=== PATIENT | male | born 1940 | race Two or more races ===

== ENCOUNTER → 2016-05-20 | Outpatient (REF) | payer MEDICARE, OTHER ==
[2016-05-20 12:26] LABS: BASO % 0.9 % (0.0-1.0); EOS # 0.2 K/mm3 (0.0-0.50); EOS % 3.1 % (0.0-3.0); LARGE UNSTAINED CELL # 0.1 K/mm3 (0.0-0.4); LARGE UNSTAINED CELL % 1.9 % (0.0-4.0); LYMPH # 1.7 K/mm3 (1.5-4.5); LYMPH % 27.4 % (24.0-44.0); MEAN CORPUSCULAR HEMOGLOBIN 31.4 pg (27.0-33.0); MEAN CORPUSCULAR HGB CONC 33.2 g/dl (32.0-36.5); MEAN CORPUSCULAR VOLUME 94.5 fl (80.0-96.0); MONO # 0.5 K/mm3 (0.0-0.8); MONO % 8.2 % (0.0-5.0); NEUTROPHILS # 3.4 K/mm3 (1.8-7.7); NEUTROPHILS % 58.4 % (36.0-66.0); PLATELET COUNT, AUTOMATED 211 k/mm3 (150-450); RED CELL DISTRIBUTION WIDTH 13.4 % (11.5-14.5); WHITE BLOOD COUNT 5.8 K/mm3 (4.0-10.0)
[2016-05-20 12:38] LABS: ALBUMIN 3.6 GM/DL (3.2-5.2); ALBUMIN/GLOBULIN RATIO 1.24 (1.00-1.93); ALKALINE PHOSPHATASE 111 U/L (45-117); ALT/SGPT 16 U/L (12-78); ANION GAP 7 MEQ/L (8-16); AST/SGOT 10 U/L (15-37); BILIRUBIN,TOTAL 0.4 MG/DL (0.2-1.0); BLOOD UREA NITROGEN 13 MG/DL (7-18); CALCIUM LEVEL 8.5 MG/DL (8.8-10.2); CARBON DIOXIDE LEVEL 30 MEQ/L (21-32); CHLORIDE LEVEL 107 MEQ/L (98-107); CREATININE FOR GFR 1.17 MG/DL (0.70-1.30); GLOMERULAR FILTRATION RATE > 60.0 (>42); GLUCOSE, FASTING 118 MG/DL (83-110); POTASSIUM SERUM 4.6 MEQ/L (3.5-5.1); SODIUM LEVEL 144 MEQ/L (136-145); TOTAL PROTEIN 6.5 GM/DL (6.4-8.2)
== END ==
LOC: M SFHCADAM 08:57
PROVIDERS: ATTEND Family Medicine
DX: R10.9 Unspecified abdominal pain (principal)

== ENCOUNTER 2016-07-12 10:57 | Emergency (ER) | payer MEDICARE, OTHER ==
[~2016-07-12] VITALS: Ht 172.7 cm; Wt 76.2 kg
[2016-07-12] MEDS ORDERED: ATOR1TAB19 PO (11:23)
[2016-07-12] MEDS ORDERED: NITR0.4S14 SL (11:23)
[2016-07-12] MEDS ORDERED: ASPI325T28 PO (11:23)
[2016-07-12] MEDS ORDERED: LISI2.5T3 PO (11:23)
[2016-07-12] MEDS ORDERED: METF500T PO (11:23)
[2016-07-12] MEDS ORDERED: PLAV75TA38 PO (11:23)
[2016-07-12 12:38] LABS: BASO # 0.1 K/mm3 (0.0-0.2); BASO % 1.3 % (0.0-1.0); EOS # 0.3 K/mm3 (0.0-0.50); EOS % 4.4 % (0.0-3.0); LARGE UNSTAINED CELL # 0.1 K/mm3 (0.0-0.4); LARGE UNSTAINED CELL % 1.9 % (0.0-4.0); LYMPH # 1.6 K/mm3 (1.5-4.5); LYMPH % 26.1 % (24.0-44.0); MEAN CORPUSCULAR HEMOGLOBIN 31.4 pg (27.0-33.0); MEAN CORPUSCULAR HGB CONC 33.2 g/dl (32.0-36.5); MEAN CORPUSCULAR VOLUME 94.5 fl (80.0-96.0); MONO # 0.3 K/mm3 (0.0-0.8); MONO % 5.3 % (0.0-5.0); NEUTROPHILS # 3.6 K/mm3 (1.8-7.7); NEUTROPHILS % 61.1 % (36.0-66.0); PLATELET COUNT, AUTOMATED 237 k/mm3 (150-450); RED CELL DISTRIBUTION WIDTH 13.5 % (11.5-14.5); WHITE BLOOD COUNT 5.9 K/mm3 (4.0-10.0)
[2016-07-12 12:55] LABS: ANION GAP 6 MEQ/L (8-16); BLOOD UREA NITROGEN 21 MG/DL (7-18); CALCIUM LEVEL 8.7 MG/DL (8.8-10.2); CARBON DIOXIDE LEVEL 27 MEQ/L (21-32); CHLORIDE LEVEL 109 MEQ/L (98-107); CREATININE FOR GFR 1.26 MG/DL (0.70-1.30); GLOMERULAR FILTRATION RATE 59.7 (>42); GLUCOSE, FASTING 82 MG/DL (83-110); POTASSIUM SERUM 4.5 MEQ/L (3.5-5.1); SODIUM LEVEL 142 MEQ/L (136-145)
[2016-07-12 13:39] LABS: ERYTHROCYTE SEDIMENTATION RATE 14 mm/hr (0-20)
--- NOTE | 2016-07-12 13:52 | REP ---
Clinical: Bilateral calf pain and swelling . Technique: Crain scale and color Doppler evaluation using linear high frequency transducer. Findings: Ultrasound examination of the right and left lower extremity deep venous structures from the common femoral vein to the popliteal vein demonstrates normal compressibility flow and wave patterns in response to respiration and augmentation. There is no evidence for deep venous thrombosis. Incidental note is made of duplicated left mid femoral vein. Impression: No evidence for deep venous thrombosis. Signed by Philip Montague MD 07/12/2016 01:44 P
[2016-07-12 14:16] VITALS: BP 175/88
== END 2016-07-12 14:20 | disposition home or self-care (01) ==
LOC: M ED 11:54
DX: S86.811A Strain of other muscle(s) and tendon(s) at lower leg level, right leg, initial encounter (principal); S86.812A Strain of other muscle(s) and tendon(s) at lower leg level, left leg, initial encounter; X50.9XXA Other and unspecified overexertion or strenuous movements or postures, initial encounter; Y92.89 Other specified places as the place of occurrence of the external cause; Y93.H9 Activity, other involving exterior property and land maintenance, building and construction; Y99.8 Other external cause status; E11.9 Type 2 diabetes mellitus without complications; I10 Essential (primary) hypertension; I25.10 Atherosclerotic heart disease of native coronary artery without angina pectoris; I25.2 Old myocardial infarction; F17.210 Nicotine dependence, cigarettes, uncomplicated; Z95.5 Presence of coronary angioplasty implant and graft; Z79.899 Other long term (current) drug therapy; Z79.82 Long term (current) use of aspirin; Z79.84 Long term (current) use of oral hypoglycemic drugs; Z88.8 Allergy status to other drugs, medicaments and biological substances

== ENCOUNTER 2017-06-13 11:45 | Emergency (ER) | payer MEDICARE, OTHER ==
[2017-06-13 12:44] LABS: BASO # 0.1 10^3/uL (0.0-0.2); BASO % 0.9 % (0.0-1.0); EOS # 0.2 10^3/uL (0.0-0.50); EOS % 2.8 % (0.0-3.0); HEMATOCRIT 39.8 % (42.0-52.0); HEMOGLOBIN 13.2 g/dl (13.5-17.5); IMMATURE GRANULOCYTE % 0.3 % (0-3.0); LYMPH # 1.9 10^3/uL (1.5-4.5); LYMPH % 28.9 % (24.0-44.0); MEAN CORPUSCULAR HGB CONC 33.2 g/dl (32.0-36.5); MEAN CORPUSCULAR VOLUME 93.4 fl (80.0-96.0); MONO # 0.5 10^3/uL (0.0-0.8); MONO % 8.1 % (0.0-5.0); NEUTROPHILS # 3.9 10^3/uL (1.8-7.7); PLATELET COUNT, AUTOMATED 208 10^3/uL (150-450); RED BLOOD COUNT 4.26 10^6/uL (4.30-6.10); WHITE BLOOD COUNT 6.5 10^3/uL (4.0-10.0)
[2017-06-13 12:51] LABS: PARTIAL THROMBOPLASTIN TIME 43.7 SECONDS (26.8-37.9)
[2017-06-13 12:58] LABS: ALBUMIN 3.4 GM/DL (3.2-5.2); ALBUMIN/GLOBULIN RATIO 0.94 (1.00-1.93); ALKALINE PHOSPHATASE 106 U/L (45-117); ALT/SGPT 21 U/L (12-78); ANION GAP 5 MEQ/L (8-16); AST/SGOT 14 U/L (7-37); BILIRUBIN,DIRECT < 0.1 MG/DL (0.0-0.2); BILIRUBIN,TOTAL 0.3 MG/DL (0.2-1.0); BLOOD UREA NITROGEN 19 MG/DL (7-18); CALCIUM LEVEL 8.4 MG/DL (8.8-10.2); CARBON DIOXIDE LEVEL 27 MEQ/L (21-32); CHLORIDE LEVEL 112 MEQ/L (98-107); CPK CREATINE PHOSPHOKINASE 55 U/L (39-308); CREATININE FOR GFR 1.23 MG/DL (0.70-1.30); GLOMERULAR FILTRATION RATE > 60.0 (>42); GLUCOSE, FASTING 65 MG/DL (70-100); LIPASE 152 U/L (73-393); POTASSIUM SERUM 4.3 MEQ/L (3.5-5.1); SODIUM LEVEL 144 MEQ/L (136-145); TROPONIN I < 0.02 NG/ML (< 0.10)
[2017-06-13 13:05] LABS: CK-MB VALUE MASS < 1.0 NG/ML (<3.6); MB/CK RELATIVE INDEX 1.81 (< OR =4); NT-PRO BNP 104 PG/ML (<125)
[2017-06-13 13:37] LABS: INR 1.03; PROTHROMBIN TIME 13.6 SECONDS (12.4-14.5)
[2017-06-13 16:01] LABS: CPK CREATINE PHOSPHOKINASE 53 U/L (39-308); TROPONIN I < 0.02 NG/ML (< 0.10)
[2017-06-13 16:02] LABS: CK-MB VALUE MASS 1.1 NG/ML (<3.6); MB/CK RELATIVE INDEX 2.07 (< OR =4)
== END 2017-06-13 19:27 | disposition short-term general hospital (02) ==
LOC: M ED 11:45
DX: I20.0 Unstable angina (principal); R00.1 Bradycardia, unspecified; I25.10 Atherosclerotic heart disease of native coronary artery without angina pectoris; I25.2 Old myocardial infarction; I10 Essential (primary) hypertension; E78.5 Hyperlipidemia, unspecified; J44.9 Chronic obstructive pulmonary disease, unspecified; Z95.5 Presence of coronary angioplasty implant and graft; F17.200 Nicotine dependence, unspecified, uncomplicated; Z79.82 Long term (current) use of aspirin; Z79.899 Other long term (current) drug therapy; Z88.8 Allergy status to other drugs, medicaments and biological substances
CPT/HCPCS: 71045

== ENCOUNTER → 2019-01-22 | Outpatient (REF) | payer MEDICARE, OTHER ==
[~2019-01-22] MED LIST: ASPI-527 PO; ATOR1TAB19 PO; LISI-1046 PO; METF500T13 PO; NITR0.4S14 SL; PLAV1TAB2 PO
[2019-01-22 17:20] LABS: BASO # 0.1 10^3/uL (0.0-0.2); BASO % 1.5 % (0.0-1.0); EOS # 0.1 10^3/uL (0.0-0.5); EOS % 1.6 % (0.0-3.0); HEMATOCRIT 41.3 % (42.0-52.0); HEMOGLOBIN 13.6 g/dl (13.5-17.5); LYMPH # 1.7 10^3/uL (1.5-5.0); LYMPH % 23.9 % (24.0-44.0); MEAN CORPUSCULAR HEMOGLOBIN 31.5 pg (27.0-33.0); MEAN CORPUSCULAR HGB CONC 32.9 g/dl (32.0-36.5); MEAN CORPUSCULAR VOLUME 95.6 fl (80.0-96.0); MONO # 0.5 10^3/uL (0.0-0.8); MONO % 7.1 % (0.0-5.0); NEUTROPHILS # 4.8 10^3/uL (1.5-8.5); NEUTROPHILS % 65.6 % (36.0-66.0); PLATELET COUNT, AUTOMATED 214 10^3/uL (150-450); RED BLOOD COUNT 4.32 10^6/uL (4.30-6.10); WHITE BLOOD COUNT 7.3 10^3/uL (4.0-10.0)
[2019-01-22 17:48] LABS: ALBUMIN 3.7 GM/DL (3.2-5.2); BILIRUBIN,TOTAL 0.4 MG/DL (0.2-1.0); CALCIUM LEVEL 8.7 MG/DL (8.8-10.2); CHOLESTEROL RISK RATIO 2.755 (<5); CREATININE FOR GFR 1.47 MG/DL (0.70-1.30); GLOMERULAR FILTRATION RATE 49.6 (>42); POTASSIUM SERUM 4.7 MEQ/L (3.5-5.1); THYROID STIMULATING HORMONE 0.857 uIU/ML (0.358-3.740); TOTAL PROTEIN 6.6 GM/DL (6.4-8.2)
[2019-01-22 18:29] LABS: HEMOGLOBIN A1c 5.6 %
== END ==
LOC: M SFHCADAM 14:32
PROVIDERS: ATTEND Physician Assistant Medical
DX: I25.10 Atherosclerotic heart disease of native coronary artery without angina pectoris (principal); E11.9 Type 2 diabetes mellitus without complications; E78.2 Mixed hyperlipidemia; Z23 Encounter for immunization
CPT/HCPCS: 80053; 80061; 83036; 84443; 85025; 90682; G0008; G0463

== ENCOUNTER → 2019-04-12 | Outpatient (CLI) | payer MEDICARE, OTHER ==
--- NOTE | 2019-04-12 14:10 | REP ---
Clinical: Wheezing . Comparison: 06/13/2017 . Technique: PA and lateral. Findings: The mediastinum and cardiac silhouette are normal. The lung ballard are clear and without acute consolidation, effusion, or pneumothorax. The skeletal structures are intact and normal. Impression: 1. No acute cardiopulmonary process. Electronically Signed by Philip Montague MD 04/12/2019 02:02 P
== END ==
LOC: M ADAMS 13:34
PROVIDERS: ATTEND Family Medicine
DX: R06.2 Wheezing (principal)
CPT/HCPCS: 71046; G0463

== ENCOUNTER → 2019-09-12 | Outpatient (REF) | payer MEDICARE, OTHER ==
[~2019-09-12] MED LIST changes: -LISI-1046 PO; +LISI2.5T2 PO
== END ==
LOC: M SFHCADAM 08:08
PROVIDERS: ATTEND Physician Assistant Medical
DX: I25.10 Atherosclerotic heart disease of native coronary artery without angina pectoris (principal); E11.9 Type 2 diabetes mellitus without complications; F17.210 Nicotine dependence, cigarettes, uncomplicated; E78.2 Mixed hyperlipidemia; I25.5 Ischemic cardiomyopathy; Z53.8 Procedure and treatment not carried out for other reasons

== ENCOUNTER → 2020-05-11 | Outpatient (REF) | payer MEDICARE, OTHER ==
[2020-05-11 12:53] LABS: BASO # 0.1 10^3/uL (0.0-0.2); BASO % 1.8 % (0.0-1.0); EOS # 0.1 10^3/uL (0.0-0.5); EOS % 2.4 % (0.0-3.0); HEMATOCRIT 43.2 % (42.0-52.0); HEMOGLOBIN 13.9 g/dl (13.5-17.5); LYMPH # 1.7 10^3/uL (1.5-5.0); MEAN CORPUSCULAR HGB CONC 32.2 g/dl (32.0-36.5); MEAN CORPUSCULAR VOLUME 96.4 fl (80.0-96.0); MONO # 0.6 10^3/uL (0.0-0.8); MONO % 10.9 % (2.0-8.0); NEUTROPHILS # 2.6 10^3/uL (1.5-8.5); NEUTROPHILS % 51.5 % (36.0-66.0); PLATELET COUNT, AUTOMATED 230 10^3/uL (150-450); RED BLOOD COUNT 4.48 10^6/uL (4.30-6.10); WHITE BLOOD COUNT 5.1 10^3/uL (4.0-10.0)
[2020-05-11 13:38] LABS: ALBUMIN 3.6 GM/DL (3.2-5.2); BILIRUBIN,TOTAL 0.4 MG/DL (0.2-1.0); CALCIUM LEVEL 8.7 MG/DL (8.8-10.2); CHOLESTEROL RISK RATIO 2.916 (<5); CREATININE FOR GFR 1.25 MG/DL (0.70-1.30); GLOMERULAR FILTRATION RATE 59.6 (>42); POTASSIUM SERUM 4.9 MEQ/L (3.5-5.1); THYROID STIMULATING HORMONE 1.27 uIU/ML (0.358-3.740); TOTAL PROTEIN 6.6 GM/DL (6.4-8.2)
[2020-05-11 13:49] LABS: HEMOGLOBIN A1c 5.9 %
== END ==
LOC: M SFHCADAM 08:22
PROVIDERS: ATTEND Physician Assistant Medical
DX: I25.10 Atherosclerotic heart disease of native coronary artery without angina pectoris (principal); E11.9 Type 2 diabetes mellitus without complications; F17.210 Nicotine dependence, cigarettes, uncomplicated; E78.2 Mixed hyperlipidemia; I25.5 Ischemic cardiomyopathy

== ENCOUNTER → 2020-05-12 | Outpatient (REF) | payer MEDICARE, OTHER ==
[2020-05-12 14:47] LABS: MAU/CREAT RATIO 54.1 MCG/MG (0.0-30.0)
== END ==
LOC: M SFHCADAM 13:12
PROVIDERS: ATTEND Physician Assistant Medical
DX: Z00.00 Encounter for general adult medical examination without abnormal findings (principal); I25.10 Atherosclerotic heart disease of native coronary artery without angina pectoris; E11.9 Type 2 diabetes mellitus without complications; F17.210 Nicotine dependence, cigarettes, uncomplicated; E78.2 Mixed hyperlipidemia; I25.5 Ischemic cardiomyopathy

== ENCOUNTER → 2020-07-31 | Outpatient (CLI) | payer MEDICARE, OTHER ==
--- NOTE | 2020-07-31 18:24 | REP ---
INDICATION: MASS OF RIGHT UPPER EXTREMITY COMPARISON: None. TECHNIQUE: AP and lateral right forearm. FINDINGS: There is no evidence of acute fracture, dislocation, or intrinsic bone disease.There are moderate degenerative changes at the articulation between the scaphoid and trapezium. No gross soft tissue abnormality is seen. IMPRESSION: No fracture or dislocation. No gross soft tissue abnormality. <Electronically signed by Arjun Crain > 07/31/20 [id number]
== END ==
LOC: M ADAMS 13:28
PROVIDERS: ATTEND Physician Assistant Medical
DX: M84.9 Disorder of continuity of bone, unspecified (principal)

== ENCOUNTER → 2020-08-19 | Outpatient (REF) | payer MEDICARE, OTHER ==
[2020-08-19 13:47] LABS: HEMOGLOBIN A1c 5.7 %
[2020-08-19 14:05] LABS: ALBUMIN 3.6 GM/DL (3.2-5.2); BILIRUBIN,TOTAL 0.3 MG/DL (0.2-1.0); CALCIUM LEVEL 8.8 MG/DL (8.8-10.2); CREATININE FOR GFR 1.39 MG/DL (0.70-1.30); GLOMERULAR FILTRATION RATE 52.7 (>42); POTASSIUM SERUM 4.5 MEQ/L (3.5-5.1); TOTAL 25(OH) VITAMIN D 19.2 NG/ML (30.0-100.0); TOTAL PROTEIN 6.6 GM/DL (6.4-8.2)
== END ==
LOC: M SFHCADAM 08:10
PROVIDERS: ATTEND Physician Assistant
DX: R55 Syncope and collapse (principal); E16.2 Hypoglycemia, unspecified; I25.10 Atherosclerotic heart disease of native coronary artery without angina pectoris; E78.2 Mixed hyperlipidemia; Z79.899 Other long term (current) drug therapy

== ENCOUNTER → 2020-08-28 | Outpatient (CLI) | payer MEDICARE, OTHER ==
[~2020-08-28] MED LIST changes: +AMLO1TAB24 PO; +ELIQ5TAB PO; +METH-1165 PO; +OMEGA-3 1000MG CAPSULE ONE; +PROHANCE 279.3MG/ML 5ML VIAL ONE; +TRAM50TA2 PO
--- NOTE | 2020-08-28 15:55 | REP ---
INDICATION: RT FOREARM MASS. COMPARISON: Radiographs 07/31/2020. TECHNIQUE: Multiple sequences obtained in the axial, coronal and sagittal planes prior to and following the intravenous administration of 8 cc ProHance. FINDINGS: The site of the palpable lump is marked and images are centered at that location. At the site of the palpable lump there is an oval nonenhancing lipoma which measures approximately 14 x 16 x 5 mm. There is no internal or adjacent enhancement. No other cystic or solid soft tissue nodule is seen. The visualized adjacent radius and ulna demonstrate normal bone marrow signal. There is no bone marrow edema or enhancement. IMPRESSION: At the site of palpable lump there is a benign nonenhancing lipoma measuring 14 x 16 x 5 mm. <Electronically signed by Arjun Crain > 08/28/20 [id number]
== END ==
LOC: M PLAIMG 12:28
PROVIDERS: ATTEND Physician Assistant Medical
DX: D17.21 Benign lipomatous neoplasm of skin and subcutaneous tissue of right arm (principal); R22.31 Localized swelling, mass and lump, right upper limb
CPT/HCPCS: 73220; A9576

== ENCOUNTER 2020-08-30 18:36 | Inpatient (IN) | payer MEDICARE, OTHER ==
[~2020-08-30] VITALS: Ht 172.7 cm; Wt 76.3 kg
[~2020-08-30 18:36] MED LIST changes: -AMLO1TAB24 PO; -ELIQ5TAB PO; -METH-1165 PO; -OMEGA-3 1000MG CAPSULE ONE; -PROHANCE 279.3MG/ML 5ML VIAL ONE; -TRAM50TA2 PO
--- NOTE | 2020-08-30 19:10 | ECGEPIP ---
[facility] Test Date: 2020-08-30 Pat Name: HUMAIRA POTTER Department: Room: - Gender: Male [employer]: JESSICA : 1940 Requested By: DAIJA Hargrove PA-C Order Number: [id number] Reading MD: Viktor Bentley Measurements Intervals Given Rate: 76 P: 50 CO: 164 QRS: 60 QRSD: 94 T: 59 QT: 382 QTc: 429 Interpretive Statements Sinus rhythm with occasional premature ventricular complexes aVL uninterpretable Rate increased from tracing done 06-13-17 Electronically Signed on 08-30-2020 19:09:51 EDT by Viktor Bentley
--- NOTE | 2020-08-30 19:39 | REP ---
INDICATION: rib pain COMPARISON: None. TECHNIQUE: Frontal view of the chest with multiple views of the right hemithorax. Five total views. FINDINGS: Frontal view of the chest demonstrates bibasilar opacities (right greater than left) consistent with atelectasis and pneumonia along with suspected right pleural effusion. Multiple views of the right hemithorax demonstrates no acute rib fracture/injury or pathology. IMPRESSION: 1. Bibasilar opacities suggesting atelectasis/pneumonia and small pleural effusion. 2. Normal appearance of the right ribs. <Electronically signed by Philip Montague > 08/30/201934
[2020-08-30] MEDS ORDERED: methocarbamoL 750 MG TAB PO ONE ×2 (20:20→22:20)
[2020-08-30] MEDS ORDERED: LIDOCAINE 5% (LIDODERM) PATCH TD ONE (20:20)
[2020-08-30] MEDS ORDERED: traMADol 50 MG TAB PO ONE ×2 (20:20→22:20)
[2020-08-30 20:42] LABS: BASO # 0.1 10^3/uL (0.0-0.2); BASO % 0.8 % (0.0-1.0); EOS # 0.1 10^3/uL (0.0-0.5); EOS % 0.7 % (0.0-3.0); HEMATOCRIT 41.8 % (42.0-52.0); HEMOGLOBIN 13.8 g/dl (13.5-17.5); LYMPH # 1.5 10^3/uL (1.5-5.0); LYMPH % 16.7 % (24.0-44.0); MEAN CORPUSCULAR HEMOGLOBIN 31.4 pg (27.0-33.0); MEAN CORPUSCULAR VOLUME 95.2 fl (80.0-96.0); MONO % 11.1 % (2.0-8.0); NEUTROPHILS # 6.4 10^3/uL (1.5-8.5); NEUTROPHILS % 70.5 % (36.0-66.0); PLATELET COUNT, AUTOMATED 182 10^3/uL (150-450); RED BLOOD COUNT 4.39 10^6/uL (4.30-6.10)
[2020-08-30] MEDS ORDERED: ASPIRIN ENTERIC 325 MG TAB PO SCH (21:00)
[2020-08-30] MEDS: **NOTE PATIENT COMMENT** MISC XX SCH (21:00)
[2020-08-30 21:07] LABS: CK-MB VALUE MASS < 1.0 NG/ML (<3.6); CPK CREATINE PHOSPHOKINASE 55 U/L (39-308); MB/CK RELATIVE INDEX 1.82 (< OR =4); TROPONIN I < 0.02 NG/ML (< 0.10)
[2020-08-30] MEDS ORDERED: TRAM50TA2 PO (22:23)
[2020-08-30] MEDS ORDERED: METH-1165 PO (22:23)
[2020-08-30] MEDS ORDERED: diazePAM 10MG/2ML SYRINGE (J3360 PER 5MG) IV ONE (22:40)
[2020-08-30] MEDS ORDERED: NS 1,000 ML IV ONE (22:55)
[2020-08-30] MEDS ORDERED: ISOVUE-370 76% 100ML VIAL As Ordered ONE (23:02)
[2020-08-31] VITALS (11 sets, daily range): BP systolic 136–168; BP diastolic 68–93; O2SAT 83–94
--- NOTE | 2020-08-31 00:05 | REPVR ---
PROCEDURE INFORMATION: Exam: CTA Chest With Contrast Exam date and time: 08/30/2020 11:21 PM Age: 79 years old Clinical indication: Pain; Right-sided; Additional info: R sided chest pain severe, not improving with meds, HX mi TECHNIQUE: Imaging protocol: Computed tomographic angiography of the chest with contrast. 3D rendering (Not supervised by radiologist): MIP and/or 3D reconstructed images were created by the technologist. Radiation optimization: All CT scans at this facility use at least one of these dose optimization techniques: automated exposure control; mA and/or kV adjustment per patient size (includes targeted exams where dose is matched to clinical indication); or iterative reconstruction. Contrast material: ISOVUE 370; Contrast volume: 75 ml; Contrast route: INTRAVENOUS (IV); COMPARISON: CR Ribs uni W-PA CHEST ONLY RIGHT 08/30/2020 6:49 PM FINDINGS: Pulmonary arteries: The main pulmonary artery measures 27 mm. Minimal pulmonary embolism extending into the lateral segment of the right middle lobe. Aorta: The ascending thoracic aorta measures 34 mm. Lungs: Mild right middle lobe and lower lobe infiltrates and atelectasis and minimal left lower lobe and anterior right upper lobe fibro-atelectatic change. Pleural spaces: Trace right pleural effusion. Heart: Coronary artery calcifications are present. RV diameter is 5.7 cm cm, LV diameter is 3.8 cm cm. RV/LV ratio is 1.5. Lymph nodes: Unremarkable. No enlarged lymph nodes. Bones/joints: Unremarkable. No acute fracture. Soft tissues: Unremarkable. IMPRESSION: 1. Mild right middle lobe and right lower lobe infiltrates and atelectasis with trace right pleural effusion and minimal fibro-atelectatic change in the left lower lobe and anterior segment of the right upper lobe. 2. Minimal pulmonary embolism extending into the lateral segment of the right middle lobe. 3. Elevated RV/LV ratio measuring 1.5. Electronically signed by: Asa Calderon On 08/31/2020 00:04:59 AM
[2020-08-31] MEDS ORDERED: diazePAM 10MG/2ML SYRINGE (J3360 PER 5MG) IV ONE (00:25)
[2020-08-31] MEDS ORDERED: AMLO1TAB24 PO (00:58)
[2020-08-31] MEDS ORDERED: MAALOX 30 ML SUSP *UDC PO PRN (01:15)
[2020-08-31] MEDS ORDERED: MOM 30ML SUSPENSION UDC PO PRN (01:15)
--- NOTE | 2020-08-31 01:20 | HPEPDOC ---
[facility] Medical History & Physical Date of Admission Aug 31, 2020 Date of Service: Aug 31, 2020 Primary Care Physician: PASCUAL MOTA PA-C Attending Physician: RENAE TAMAYO MD History and Physical TIME OF SERVICE: 1:55 AM CHIEF COMPLAINT: Chest pain HISTORY OF PRESENT ILLNESS: Mr. Peguero, a 79-year-old male, presented with complaints of sudden onset right lower chest/mid abdomen sharp and shooting relapsing and remitting pain that began this morning. The pain did not radiate anywhere and was different from the pain associated with his AR. He thought that the pain might be due to excessive exertion. [place]age and mowed his lawn yesterday and washed his car later on in the day. He also had transient right upper shoulder pain. He denied having fevers, chills, change in his chronic cough, shortness of breath, trauma to his lower extremities recently, or falling. He drove to the [employer] in [facility] about 1 week ago. REVIEW OF SYSTEMS: 10 point review of systems negative except as listed in HPI PAST MEDICAL/ SURGICAL HISTORY: Chronic CAD/2 MIs with placement of 4 stents ( GARY and BMS), Ischemic cardiomyopathy EF 45%, carotid artery disease status post left carotid endarterectomy, NIDDM, essential HTN, COPD SOCIAL HISTORY: He is a ; his a few weeks ago. He is a who served in the [employer]. He began smoking when he was 42 years old and smokes less than a pack a day, he does not drink alcohol. He is fairly active and enjoys spending time in the outdoors [place] [address] [place]. FAMILY HISTORY: His father who is had heart disease/his mother who is had dementia/his siblings had CAD/one of his brothers from an embolic event ALLERGIES: Please see below. HOME MEDICATIONS: Please see below. PHYSICAL EXAM: Vital Signs Date Time Temp Pulse Resp B/P (MAP) Pulse Ox O2 Delivery O2 Flow Rate FiO2 08/30/20 18:45 99.2 81 18 171/95 (120) 97 GEN: well-nourished / well developed/ NAD INTEGUMENT: His nose is cyanotic but he does not have facial plethora HEENT: normocephalic / atraumatic / lips are not cyanotic / mucus membranes moist and pink /he has mild conjunctival injection CVS: RRR/ radial pulses intact / no lower extremity edema LUNGS: He is not coughing or using accessory muscles/there is normal respiratory expansion/he is not wheezing ABDOMEN: Contour flat MSK/EXTREMITIES: He has finger nail clubbing NEURO: CN 2-12 are grossly intact / speech is not dysarthric PSYCH: alert and oriented to person place and time/ able to understand and follow all commands LABORATORY DATA: See below. Immature Granulocyte % (Auto) 0.2, Neutrophils (%) (Auto) 70.5H, Lymphocytes (%) (Auto) 16.7L, Monocytes (%) (Auto) 11.1H, Eosinophils (%) (Auto) 0.7, Basophils (%) (Auto) 0.8, Neutrophils # (Auto) 6.4, Lymphocytes # (Auto) 1.5, Monocytes # (Auto) 1.0H, Eosinophils # (Auto) 0.1, Basophils # (Auto) 0.1, Nucleated Red Blood Cells % (auto) 0.0, Total Creatine Kinase 55, Creatine Kinase MB < 1.0, Creatine Kinase MB Relative Index 1.82, Troponin I < 0.02 08/30/20 20:36: POC Glucose (Misc Panel) 125H, POC Sodium (Misc Panel) 141, POC Potassium (Misc Panel) 4.0, POC Chloride (Misc Panel) 102, POC Total CO2 (Misc Panel) 25.0, POC Blood Urea Nitrogen (Misc Panel 18, POC Ionized Calcium (Misc Panel) 4.8, POC Creatinine (Misc Panel) 1.6H, POC Hematocrit (Misc Panel) 43.0 IMAGING: Chest x-ray IMPRESSION: 1. Bibasilar opacities suggesting atelectasis/pneumonia and small pleural effusion. 2. Normal appearance of the right ribs. CTA chest IMPRESSION: 1. Mild right middle lobe and right lower lobe infiltrates and atelectasis with trace right pleural effusion and minimal fibro- atelectatic change in the left lower lobe and anterior segment of the right upper lobe. 2. Minimal pulmonary embolism extending into the lateral segment of the right middle lobe. 3. Elevated RV/LV ratio measuring 1.5. MICROBIOLOGY: Respiratory panel is neg ASSESSMENT: Mr. Peguero is a 79 yr old M w CAD, Ischemic cardiomyopathy EF 45%, NIDDM, HTN, & COPD admitted for managment of submassive vs acute PE. PLAN: 1. Submassive PE vs Acute PE -He doesnt have hypotension or tachycardia and his Trop and BNP are wnl. -If the right heart strain is new and due to the PE this is a Submassive PE; the implications of this diagnosis is that this is one of the contraindications to starting a DOAC for manager intermediate AC. The day time team may consider discussing if the patient is a candidate for catheter directed therapy or EKOS. The SEATTLE II trial demonstrated that both the RV function and pulmonary artery (PA) pressures were safely and effectively improved at 48 hours postEKOS-assisted thrombolysis. -If the right heart strain is chronic and due to Pulm HTN and/or COPD then his PE is likely acute and he can be switched to a DOAC. -His ARABELLA Score to determine risk of complications in hemodynamically STABLE patients with Acute PE is 2 points = low risk for complications and morality -His PESI score is 97 which is class III or intermediate risk therefore he meets criteria for in-patient admission. Plan: we will admit him to the medical floor, rather than the PCU, because his ARABELLA score is low / we will start him on treatment dose lovenox pending the results of the Echo and obtaining records of his old Echo (from office) for comparison / I will ask the day time team to consult and or to confirm whether he is a candidate for EKOS 2 Right middle lobe and right lower lobe infiltrates -Beyond the chest pain he doent have signs or symptoms consistent with pneumonia. -I wonder if these opacities are Duke humps (pulmonary infarction). Plan: incentive spirometer / will ask the day time team to touch base with 3 Pleuritic right mid-lower chest pain -Possibly due to pulmonary infarction or muscle strain from exertion Plan: telemetry / acetaminophen / Flector patch and Tramadol 4 Transient Hypoxemia -Per d/w the patients RN in the ER the patients O2 sats dropped to the high 80s. -This may be due to the PE or alternatively may be chronic due to COPD Plan: continuous pulse ox /supplemental O2 / f/u ABG 5 Uncontrolled HTN -Possibly due to pain Plan: pain meds / give an extra 5 mg of Amlodipine tonight, otherwise we will c/w Amlodipe 5mg daily and Lisinoprl 2.5mg daily and tirate as needed 6 COPD -He denies feeling short of breath Plan: Albuterol PRN 6 Chronic CAD Plan: Aspirin, Clopidogrel, Atorvastatin 7 Chronic Ischemic cardiomyopathy EF 45% Plan: manage HTN 7 NIDDM Plan: diabetic diet / f/u accuchecks / hypoglycemia protocol / sliding scale insulin / hold oral anti-glycemic 8 CKD 3 Plan: f/u BMP DVT PROPHYLAXIS: n/a he is on treatment dose lovenox DISPOSITION: home after at least 2 midnight's stay Home Medications Scheduled Amlodipine Besylate (Amlodipine Besylate) 5 Mg Tablet, 5 MG PO DAILY Aspirin (Aspirin EC) 325 Mg Tab, 325 MG PO QHS Atorvastatin Calcium (Atorvastatin Calcium) 10 Mg Tab, 10 MG PO DAILY Clopidogrel Bisulfate (Plavix) 75 Mg Tab, 75 MG PO DAILY Lisinopril (Lisinopril) 2.5 Mg Tab, 2.5 MG PO DAILY Metformin HCl (Metformin HCl) 500 Mg Tab, 500 MG PO DAILY Scheduled PRN Nitroglycerin (Nitroglycerin) 0.4 Mg Sub, 0.4 MG SL for chest pain Allergies Coded Allergies: varenicline (Verified Allergy, Intermediate, RASH, 08/30/20) A-FIB/CHADSVASC A-FIB History Current/History of A-Fib/PAF?: No Current PO Anticoag Therapy: RENAE Singh MD Aug 31, 2020 01:20
[2020-08-31] MEDS ORDERED: GLUCAGON INJ 1MG VIAL SC PRN (01:35)
[2020-08-31] MEDS ORDERED: GLUCOSE 4GM CHEW TABLET PO PRN (01:35)
[2020-08-31] MEDS ORDERED: DEXTROSE 50% 50 ML SYRINGE IV PRN (01:35)
[2020-08-31] MEDS ORDERED: NITROGLYCERIN 0.4 MG SUBL TABLET SL PRN (01:35)
[2020-08-31] MEDS ORDERED: amLODIPine 5 MG TAB PO ONE (02:25)
[2020-08-31 02:49] LABS: RSV AMPLIFICATION NEGATIVE (NEGATIVE)
[2020-08-31] MEDS: ENOXAPARIN 80MG/0.8ML SYRINGE (J1650 PER 10MG) SC SCH ×2 (04:00→18:03)
[2020-08-31 07:05] LABS: HEMOGLOBIN A1c 5.6 %
[2020-08-31 08:31] LABS: BASO # 0.1 10^3/uL (0.0-0.2); BASO % 0.6 % (0.0-1.0); EOS % 0.3 % (0.0-3.0); HEMATOCRIT 40.6 % (42.0-52.0); HEMOGLOBIN 13.3 g/dl (13.5-17.5); LYMPH # 1.2 10^3/uL (1.5-5.0); LYMPH % 12.2 % (24.0-44.0); MEAN CORPUSCULAR HEMOGLOBIN 31.3 pg (27.0-33.0); MEAN CORPUSCULAR HGB CONC 32.8 g/dl (32.0-36.5); MEAN CORPUSCULAR VOLUME 95.5 fl (80.0-96.0); MONO % 10.4 % (2.0-8.0); NEUTROPHILS # 7.4 10^3/uL (1.5-8.5); NEUTROPHILS % 75.9 % (36.0-66.0); PLATELET COUNT, AUTOMATED 175 10^3/uL (150-450); RED BLOOD COUNT 4.25 10^6/uL (4.30-6.10); WHITE BLOOD COUNT 9.7 10^3/uL (4.0-10.0)
[2020-08-31 08:43] LABS: INR 1.12; PROTHROMBIN TIME 14.7 SECONDS (12.5-14.3)
[2020-08-31 08:45] LABS: PARTIAL THROMBOPLASTIN TIME 77.5 SECONDS (24.2-38.5)
[2020-08-31] MEDS: HumaLOG INSULIN (NovoLOG) PER UNIT SC SCH ×4 (08:46→21:00)
[2020-08-31] MEDS: LISINOPRIL *2.5 MG* TAB PO SCH (08:46)
[2020-08-31] MEDS: ATORVASTATIN 10 MG TAB PO SCH (08:47)
[2020-08-31] MEDS: DICLOFENAC EPOLAMINE 1.3 % PATCH TOP SCH (08:48)
[2020-08-31] MEDS: CLOPIDOGREL 75 MG TAB PO SCH (08:49)
[2020-08-31] MEDS ORDERED: amLODIPine 5 MG TAB PO SCH (09:00)
[2020-08-31 09:02] LABS: ALBUMIN 3.2 GM/DL (3.2-5.2); BILIRUBIN,TOTAL 0.8 MG/DL (0.2-1.0); CALCIUM LEVEL 8.1 MG/DL (8.8-10.2); CREATININE FOR GFR 1.27 MG/DL (0.70-1.30); GLOMERULAR FILTRATION RATE 58.5 (>42); POTASSIUM SERUM 4.2 MEQ/L (3.5-5.1); TOTAL PROTEIN 6.8 GM/DL (6.4-8.2)
--- NOTE | 2020-08-31 15:11 | IPNPDOC ---
Date Seen The patient was seen on 08/31/20. Progress Note SUBJECTIVE: Mr. Peguero is a pleasant 79 year old male sitting in the hospital bed. He presented to the Emergency department early this morning for new onset right sided chest pain/upper abdominal pain that started on the morning of 08/30/20. He states that he is feeling better than he was when he first presented to the ED. He is no longer experiencing the sharp right sided pain that he presented with. He was able to eat breakfast this morning without any nausea, vomiting, or diarrhea. He would like to go home but it is explained to him that we must obtain an echocardiogram to compare to his last one with Dr. May in order to decide the best treatment option for him. He had no overnight events and currently has an oxygen saturation of 96% on 3L NC. His (Dania Samuel) a few weeks ago on Father's Day. He lives alone in [place] but does have one son who lives nearby. He stated that he is taking life one day at a time and is handling her the best that he can at this time. OBJECTIVE PHYSICAL EXAMINATION: VITAL SIGNS: Please see below. GENERAL: well nourished elderly male sitting comfortably in bed in no acute distress HEENT: PERRLA, EOMI, mucous membranes are moist and pink, he had teeth extraction and thus has no teeth, trachea is midline, no lymphadenopathy appreciated CARDIOVASCULAR: regular rate and rhythm, no murmurs noted, heart sounds distant RESPIRATORY: Inspiratory effort decreased bilaterally, course crackles appreciated bilaterally, no rhonchi noted ABDOMINAL: positive bowel sounds in all 4 quadrants, soft, nontender to palpation. No organomegaly appreciated EXTREMITIES: Nail clubbing present on bilateral upper extremities, hair loss noted distal to knees bilaterally, no edema, capillary refill <2 seconds. PSYCHOLOGICAL: alert and oriented x 3 LABORATORY DATA, IMAGING STUDIES, MICROBIOLOGY: Please see below. Rib x-ray 08/30/20: Impression: Bibasilar opacities suggesting atelectasis/pneumonia and small pleural effusion. Normal appearance of the right ribs. CT angio chest 08/30/20: Impression: Mild right middle lobe and right lower lobe infiltrates and atelectasis with trace right pleural effusion and minimal fibro- atelectatic change in the left lower lobe and anterior segment of the right upper lobe. Minimal pulmonary embolism extending into the lateral segment of the right middle lobe. Elevated RV/LV ratio measuring 1.5. Echocardiogram: pending results DVT prophylaxis ordered?: yes, continue lovenox 80mg q12h ASSESSMENT AND PLAN: Mr. Peguero is a 79 year old male with past medical history of Coronary artery disease s/p two myocardial infarctions x 4 stents (both drug eluding and bare metal), Left carotid endarterectomy, ischemic cardiomyopathy EF 45%, Non Insulin Dependent diabetes mellitus, hypertension, and COPD who presented to the ED with new onset sharp right sided lower chest/upper abdominal pain who was found to have a right sided pulmonary embolism. PROBLEM: #Submassive vs Acute Pulmonary Embolism -Patient is not hypotensive, BP: 129/75 -Troponin within normal limits, ordered repeat -CTA results demonstrated right ventricular dilation (RV diameter 5.7cm vs LV diameter 3.8) RV/LV ratio is 1.5 (abnormal is considered above 1.0) -ordered a Dopplar echocardiogram, will review this and compare to past echocardiogram at Dr. May's offfice. If right ventricular dilation is new will consider EKOS catheter assisted thrombolysis. -Patient states he traveled to [facility] 1 week ago (2 hour car ride) -Patient has no history of blood clots, GI bleeds, or brain bleeds -Occult workup: CEA, PSA, Occult blood stool sample pending -Patient last colonoscopy 2010-Dr. Phan, told to return in 10 years-per patient -Patient has not had PSA measured in 5+ years and denies hematochezia. #CAD s/p two MIs -s/p 4 stents, both drug eluding and bare metal. -First two (2010, 2011) Last two stents placed 01/2020 -Patient follows with Dr. May for Cardiology -Nuclear stress test 05/2015 shows LVEF 45% -discontinued ASA 325, started ASA 81mg -Continue ASA 81 and plavix 75 for dual antiplatelet treatment 1 year following stent placement. -s/p left endarterectomy -continue atorvastatin #NIDDM -Last A1C 08/19/20: 5.7 -Patient takes Metformin 500mg q day as an outpatient -Continue SSI as inpatient -continue consistent carbohydrate diet #Hypertension: -BP stable: 129/75 -continue Lisinopril and amlodipine #COPD: -15 pack year smoking history, started at age 42 because of his -Patient's a few weeks ago, he is not interested in smoking cessation at this time. -Patient is not on any medications as an outpatient #CKD stage 3 -GFR 58.5 patient is around baseline -Likely secondary to hypertension -Continue lisinopril and amlodipine -BUN: 15 Creatinine: 03/18 DVT prophylaxis: yes, continue lovenox 80 q 12h DISPOSITION: We are awaiting the results of the echocardiogram. We will speak to Dr. May tomorrow to discuss if patient should be discharged on aspirin. He is currently on ASA 81 and plavix 75 secondary to stent placement 01/2020. Patient will likely be discharged on a DOAC. GME ATTESTATION My faculty preceptor for this patient encounter was physically present during encounter and was fully available. All aspects of the patient interview, examination, medical decision making process, and medical care plan development were reviewed and approved by the faculty preceptor. The faculty preceptor is aware and concurs with the plan as stated in the body of this note and will attest to such by his/her cosignature. VS, I&O, 24H, Fishbone Vital Signs/I&O Vital Signs Date Time Temp Pulse Resp B/P (MAP) Pulse Ox O2 Delivery O2 Flow Rate FiO2 08/31/20 12:02 98.6 67 18 149/93 (111) Nasal Cannula 3.0 08/31/20 07:58 93 Laboratory Data 24H LABS Laboratory Tests 2 08/30/20 20:23: Immature Granulocyte % (Auto) 0.2, Neutrophils (%) (Auto) 70.5H, Lymphocytes (%) (Auto) 16.7L, Monocytes (%) (Auto) 11.1H, Eosinophils (%) (Auto) 0.7, Basophils (%) (Auto) 0.8, Neutrophils # (Auto) 6.4, Lymphocytes # (Auto) 1.5, Monocytes # (Auto) 1.0H, Eosinophils # (Auto) 0.1, Basophils # (Auto) 0.1, Nucleated Red Blood Cells % (auto) 0.0, Estimated Mean Plasma Glucose 114H, Hemoglobin A1c 5.6, Total Creatine Kinase 55, Creatine Kinase MB < 1.0, Creatine Kinase MB Relative Index 1.82, Troponin I < 0.02 08/30/20 20:36: POC Glucose (Misc Panel) 125H, POC Sodium (Misc Panel) 141, POC Potassium (Misc Panel) 4.0, POC Chloride (Misc Panel) 102, POC Total CO2 (Misc Panel) 25.0, POC Blood Urea Nitrogen (Misc Panel 18, POC Ionized Calcium (Misc Panel) 4.8, POC Creatinine (Misc Panel) 1.6H, POC Hematocrit (Misc Panel) 43.0 08/31/20 01:59: Coronavirus (COVID-19)(PCR) NEGATIVE, Influenza Type A (RT-PCR) NEGATIVE, Infl uenza Type B (RT-PCR) NEGATIVE, Respiratory Syncytial Virus (PCR) NEGATIVE 08/31/20 07:38: Bedside Glucose (Misc Panel) 127H 08/31/20 08:06: Immature Granulocyte % (Auto) 0.6, Neutrophils (%) (Auto) 75.9H, Lymphocytes (%) (Auto) 12.2L, Monocytes (%) (Auto) 10.4H, Eosinophils (%) (Auto) 0.3, Basophils (%) (Auto) 0.6, Neutrophils # (Auto) 7.4, Lymphocytes # (Auto) 1.2L, Monocytes # (Auto) 1.0H, Eosinophils # (Auto) 0.0, Basophils # (Auto) 0.1, Nucleated Red Blood Cells % (auto) 0.0, Anion Gap 6L, Glomerular Filtration Rate 58.5, Calcium Level 8.1L, Total Bilirubin 0.8, Aspartate Amino Transf (AST/SGOT) 7, Alanine Aminotransferase (ALT/SGPT) 16, Alkaline Phosphatase 99, Total Protein 6.8, Albumin 3.2, Albumin/Globulin Ratio 0.9 08/31/20 08:10: Prothrombin Time 14.7H, Prothromb Time International Ratio 1.12, Activated Partial Thromboplast Time 77.5H 08/31/20 11:59: Bedside Glucose (Misc Panel) 92 CBC/BMP Laboratory Tests 08/30/20 20:23 08/31/20 08:06 ARIANNA BARAJAS DO Aug 31, 2020 15:11
[2020-08-31] MEDS: ACETAMINOPHEN TAB 650MG DOSE (2X325MG) PO PRN ×2 (16:31→23:31)
[2020-08-31] MEDS ORDERED: traMADol ER 100MG TABLET (ULTRAM ER) PO PRN (21:00)
--- NOTE | 2020-08-31 21:07 | ECHO ---
ECHOCARDIOGRAM DATE OF PROCEDURE: 08/31/2020 Age: 79 Gender: Female Height: 173 cm Weight: 79 kg REFERRING PHYSICIAN: Dr. Guillermina Richards INDICATION: Pulmonary embolism, looking at right ventricular function. MEASUREMENTS: IVS 1.1 cm LV 4.7 cm LVPW 1.1 cm LA 3.5 cm Aorta 3.8 cm Mitral E wave velocity 69 A wave 88 E prime septal 8.8 E prime lateral 10.4 FINDINGS: This study is of acceptable technical quality even though especially parasternal views were fair at best. Underlying sinus rhythm with ventricular ectopy. Left ventricle is normal size and systolic function with estimated EF around 60 to 65%. No segmental wall motion abnormalities are appreciated. Right ventricle is also normal size and systolic function. Both atria appear grossly normal. Aortic valve is minimally sclerotic, but mobility of leaflets seem preserved. Mitral and tricuspid valves appear normal. Pulmonic valve was not well seen. No pericardial effusion is noted. Inferior vena cava was not well visualized. Aortic root and aortic arch appear normal. Abdominal aorta was not seen. Doppler interrogation of the aortic valve reveals no stenosis or insufficiency. Same applies for mitral valve. Trace tricuspid insufficiency was seen. Unfortunately quality of TR jet was not sufficient to estimate pulmonary artery pressure. Mitral inflow pattern and tissue Doppler imaging of mitral annulus revealed grade 1 diastolic dysfunction. CONCLUSIONS: 1. Study is of acceptable technical quality, underlying sinus rhythm. 2. Normal LV size with preserved LV systolic function and grade 1 diastolic dysfunction. 3. No hemodynamically significant valvular disease. 4. Unable to estimate central venous pressure and pulmonary artery pressure, but no signs to suggest pulmonary hypertension. MTDD
[2020-08-31] MEDS: BACLOFEN 10 MG TAB PO SCH (21:46)
[2020-08-31] MEDS ORDERED: IPRATROPIUM 0.5MG/ALBUTEROL 2.5MG INH SOL UD 3ML (DUONEB) NEB ONE (23:35)
[2020-08-31] MEDS ORDERED: methylPREDNISolone 125MG 2ML VIAL IV ONE (23:55)
[2020-08-31] MEDS ORDERED: IPRATROPIUM 0.5MG/ALBUTEROL 2.5MG INH SOL UD 3ML (DUONEB) NEB PRN (23:55)
[2020-09-01] MEDS: DICLOFENAC EPOLAMINE 1.3 % PATCH TOP SCH ×3 (01:24→21:00)
[2020-09-01] MEDS: ENOXAPARIN 80MG/0.8ML SYRINGE (J1650 PER 10MG) SC SCH ×2 (01:26→15:23)
[2020-09-01 01:30] VITALS: O2SAT 97
[2020-09-01 06:00] VITALS: BP 137/78
[2020-09-01 06:15] VITALS: O2SAT 92
[2020-09-01 06:38] LABS: HEMATOCRIT 42.1 % (42.0-52.0); HEMOGLOBIN 13.8 g/dl (13.5-17.5); MEAN CORPUSCULAR HEMOGLOBIN 31.1 pg (27.0-33.0); MEAN CORPUSCULAR HGB CONC 32.8 g/dl (32.0-36.5); MEAN CORPUSCULAR VOLUME 94.8 fl (80.0-96.0); PLATELET COUNT, AUTOMATED 172 10^3/uL (150-450); RED BLOOD COUNT 4.44 10^6/uL (4.30-6.10); WHITE BLOOD COUNT 10.3 10^3/uL (4.0-10.0)
[2020-09-01 07:02] LABS: CALCIUM LEVEL 8.9 MG/DL (8.8-10.2); CREATININE FOR GFR 1.26 MG/DL (0.70-1.30); GLOMERULAR FILTRATION RATE 58.9 (>42); POTASSIUM SERUM 4.3 MEQ/L (3.5-5.1)
[2020-09-01] MEDS: **NOTE PATIENT COMMENT** MISC XX SCH ×2 (08:20→21:00)
--- NOTE | 2020-09-01 08:38 | REP ---
INDICATION: pneumonia. COMPARISON: Multiple the latest 08/30/2020 a frontal view of the chest obtained during right rib series. FINDINGS: The technique utilized in obtaining the radiograph has magnified the cardiac silhouette and accentuated the interstitial markings. Right basilar opacities seen on the prior exam have increased. No new abnormal opacities have developed in the left lung. There is no significant change in the cardiomediastinal silhouette or osseous structures. IMPRESSION: Increased right basilar opacities. Effusion/atelectasis/pneumonia. Consider PA and lateral views of the chest. Consider follow-up chest CT so as it can be compared to the chest CT of 08/30/2020 if clinically relevant. <Electronically signed by Johnathan Rodriguez > 09/01/20 [id number]
[2020-09-01] MEDS: HumaLOG INSULIN (NovoLOG) PER UNIT SC SCH ×4 (08:56→21:00)
[2020-09-01] MEDS: CLOPIDOGREL 75 MG TAB PO SCH (08:57)
[2020-09-01] MEDS: LISINOPRIL *2.5 MG* TAB PO SCH (08:57)
[2020-09-01] MEDS: ATORVASTATIN 10 MG TAB PO SCH (08:57)
[2020-09-01] MEDS ORDERED: ASPIRIN 81MG ENTERIC TABLET PO SCH (09:00)
[2020-09-01 14:00] VITALS: BP 153/90
--- NOTE | 2020-09-01 18:33 | IPNPDOC ---
Date Seen The patient was seen on 09/01/20. Progress Note SUBJECTIVE: Mr. Peguero is sitting comfortably in his bed when I walked into the room this morning. Today is his 80th birthday and he is hopeful to be discharged today. He has received a few calls from friends and family today but it is still difficult for him because this is the first birthday he has spent alone since his 's passing. Mr. Peguero stated that he "feels great" and is not having any difficulty breathing today. He occasionally feels a "sharp twinge" of pain in his right lower chest/ upper abdomen when he takes a deep breath in. Mr. Peguero had one over night even where his oxygen saturation was 88% on 10L oxygen. He currently has an oxygen saturation of 94% on 5L. He denies dizziness, shortness of breath, nausea, vomiting, diarrhea, constipation, or lower extremity edema. OBJECTIVE PHYSICAL EXAMINATION: VITAL SIGNS: Please see below. GENERAL: elderly male in no acute distress sitting in bed. HEENT: no dentition, mucous membranes are moist and pink CARDIOVASCULAR: heart sounds distant, regular rate and rhythm, no murmurs noted RESPIRATORY: Inspiratory effort decreased bilaterally, no rhonchi noted, some crackles appreciated on right side ABDOMINAL: positive bowel sounds in all 4 quadrants, soft, nontender to palpation. EXTREMITIES: Hair loss on b/l lower extremities, Nail clubbing present on bilateral upper extremities, no edema noted, capillary refill <2 seconds. PSYCHOLOGICAL: alert and oriented x 3, normal affect LABORATORY DATA, IMAGING STUDIES, MICROBIOLOGY: Please see below. Rib x-ray 08/30/20: Impression: Bibasilar opacities suggesting atelecta sis/pneumonia and small pleural effusion. Normal appearance of the right ribs. CT angio chest 08/30/20: Impression: Mild right middle lobe and right lower lobe infiltrates and atelectasis with trace right pleural effusion and minimal fibro- atelectatic change in the left lower lobe and anterior segment of the right upper lobe. Minimal pulmonary embolism extending into the lateral segment of the right middle lobe. Elevated RV/LV ratio measuring 1.5. CHest x-ray 09/01/20 Impression: Increased right basilar opacities. Effusion/atelectasis/pneumonia. Consider PA and lateral views of the chest. C onsider follow-up chest CT so as it can be compared to the chest CT of 08/30/2020 if clinically relevant. Echocardiogram: 1. Study is of acceptable technical quality, underlying sinus rhythm. 2. Normal LV size with preserved LV systolic function and grade 1 diastolic dysfunction. 3. No hemodynamically significant valvular disease. 4. Unable to estimate central venous pressure and pulmonary artery pressure, but no signs to suggest pulmonary hypertension. Right ventricle is also normal size and systolic function. DVT prophylaxis ordered?: Yes, continue lovenox ASSESSMENT AND PLAN: Mr. Peguero is a 79 year old male with past medical history of Coronary artery disease s/p two myocardial infarctions x 4 stents (both drug eluding and bare metal), Left carotid endarterectomy, ischemic cardiomyopathy EF 45%, Non Insulin Dependent diabetes mellitus, hypertension, and COPD who presented to the ED with new onset sharp right sided lower chest/upper abdominal pain who was found to have a right sided pulmonary embolism. PROBLEMS: #Acute Pulmonary Embolism -Troponin within normal limits, ordered repeat the results are still pending today, will order another repeat for tomorrow AM -CTA results demonstrated right ventricular dilation (RV diameter 5.7cm vs LV diameter 3.8) RV/LV ratio is 1.5 (abnormal is considered above 1.0) -ordered a Dopplar echocardiogram shows normal right ventricle size and function when compared to left ventricle. -Will discharge patient on Eliquis (10mg x 7 days, 5 mg q day after initial 7 days) -Occult workup: CEA, PSA, Occult blood stool sample still pending, patient can follow up on this in outpatient setting. -Patient may be requiring more oxygen secondary to pulmonary embolism. -Ordered repeat chest x-ray for the morning to look for increased basilar opacities. #CAD s/p two MIs -s/p 4 stents, both drug eluding and bare metal. -First two (2010, 2011) Last two stents placed 01/2020 -Trying to get notes from [facility] in [place] to confirm stent placement -Spoke to Dr. May about patient's anticoagulation treatment, we came up with a plan for discharge. -Nuclear stress test 05/2015 shows LVEF 45% -patient states he coughed up a small amount of bloody sputum, will discontinue ASA 81mg -HAS-BLED score 3: patient is at a high risk for bleeding based on his hypertension, age, and the fact that he takes plavix. -continue atorvastatin #NIDDM -Last A1C 08/19/20: 5.7 -Patient takes Metformin 500mg q day as an outpatient -Continue SSI as inpatient -continue consistent carbohydrate diet #Hypertension: -BP stable: -continue Lisinopril and amlodipine #COPD: -15 pack year smoking history, started at age 42 because of his -Patient's a few weeks ago, he is not interested in smoking cessation at this time. -Patient is not on any medications as an outpatient #CKD stage 3 -GFR 58.5 patient is around baseline -Likely secondary to hypertension -Continue lisinopril and amlodipine -BUN: 17 Creatinine: 1.26 DVT prophylaxis: yes, continue lovenox 80 q 12h DISPOSITION: Will continue to monitor patient for clinical improvement, he is breathing on 3L of oxygen at this time. Will likely discharge the patient with at home oxygen if his breathing status does not improve while in the hospital. Will discharge patient on Eliquis for his PE. GME ATTESTATION My faculty preceptor for this patient encounter was physically present during the encounter and was fully available. All aspects of the patient interview, examination, medical decision making process, and medical care plan development were reviewed and approved by the faculty preceptor. The faculty preceptor is aware and concurs with the plan as stated in the body of this note and will attest to such by his/her cosignature. VS, I&O, 24H, Fishbone Vital Signs/I&O Vital Signs Date Time Temp Pulse Resp B/P (MAP) Pulse Ox O2 Delivery O2 Flow Rate FiO2 09/01/20 16:12 Nasal Cannula 3.0 90 09/01/20 08:57 103 157/90 09/01/20 06:15 92 09/01/20 06:00 98.3 16 I&O- Last 24 Hours up to 6 AM 09/01/20 06:00 Intake Total 930 ml Output Total 600 ml Balance 330 ml Laboratory Data 24H LABS Laboratory Tests 2 08/31/20 17:58: Bedside Glucose (Misc Panel) 98 08/31/20 21:01: Bedside Glucose (Misc Panel) 156H 09/01/20 06:11: Nucleated Red Blood Cells % (auto) 0.0, Anion Gap 7L, Glomerular Filtration Rate 58.9, Calcium Level 8.9 09/01/20 11:51: Bedside Glucose (Misc Panel) 163H 09/01/20 16:23: Bedside Glucose (Misc Panel) 283H CBC/BMP Laboratory Tests 09/01/20 06:11 ARIANNA BARAJAS DO Sep 01, 2020 18:33
[2020-09-01] MEDS: BACLOFEN 10 MG TAB PO SCH (21:31)
[2020-09-01 22:00] VITALS: BP 148/89
[2020-09-02] MEDS: ENOXAPARIN 80MG/0.8ML SYRINGE (J1650 PER 10MG) SC SCH ×2 (02:47→14:00)
[2020-09-02 06:00] VITALS: BP 132/69
[2020-09-02 06:27] LABS: BASO % 0.1 % (0.0-1.0); HEMATOCRIT 38.1 % (42.0-52.0); HEMOGLOBIN 12.7 g/dl (13.5-17.5); LYMPH % 7.6 % (24.0-44.0); MEAN CORPUSCULAR HEMOGLOBIN 31.3 pg (27.0-33.0); MEAN CORPUSCULAR HGB CONC 33.3 g/dl (32.0-36.5); MEAN CORPUSCULAR VOLUME 93.8 fl (80.0-96.0); MONO # 0.9 10^3/uL (0.0-0.8); MONO % 6.7 % (2.0-8.0); NEUTROPHILS # 10.8 10^3/uL (1.5-8.5); NEUTROPHILS % 84.7 % (36.0-66.0); PLATELET COUNT, AUTOMATED 201 10^3/uL (150-450); RED BLOOD COUNT 4.06 10^6/uL (4.30-6.10); WHITE BLOOD COUNT 12.7 10^3/uL (4.0-10.0)
[2020-09-02 07:04] LABS: BLOOD UREA NITROGEN 27 MG/DL (7-18); CALCIUM LEVEL 8.4 MG/DL (8.8-10.2); CARBON DIOXIDE LEVEL 24 MEQ/L (21-32); CHLORIDE LEVEL 112 MEQ/L (98-107); CREATININE FOR GFR 1.19 MG/DL (0.70-1.30); GLOMERULAR FILTRATION RATE > 60.0 (>42); GLUCOSE, FASTING 122 MG/DL (70-100); POTASSIUM SERUM 4.6 MEQ/L (3.5-5.1); SODIUM LEVEL 143 MEQ/L (136-145); TROPONIN I < 0.02 NG/ML (< 0.10)
[2020-09-02] MEDS: HumaLOG INSULIN (NovoLOG) PER UNIT SC SCH ×2 (07:30→12:00)
--- NOTE | 2020-09-02 08:53 | REP ---
INDICATION: shortness of breath. COMPARISON: Multiple the latest yesterday a portable exam FINDINGS: The opacities seen previously in the right lower lobe has decreased. CP angle blunting persists. The cardiomediastinal silhouette is within normal limits. Left lung is clear. There is no change in the osseous structures. IMPRESSION: Improved right lower lobe. Continued surveillance is recommended. <Electronically signed by Johnathan Rodriguez > 09/02/20 0460
[2020-09-02] MEDS: DICLOFENAC EPOLAMINE 1.3 % PATCH TOP SCH (09:00)
[2020-09-02 09:30] VITALS: O2SAT 93
[2020-09-02 09:31] VITALS: BP 132/84
[2020-09-02] MEDS: ATORVASTATIN 10 MG TAB PO SCH (09:31)
[2020-09-02] MEDS: CLOPIDOGREL 75 MG TAB PO SCH (09:31)
[2020-09-02] MEDS: LISINOPRIL *2.5 MG* TAB PO SCH (09:32)
[2020-09-02 10:00] VITALS: O2SAT 94
[2020-09-02] MEDS ORDERED: ELIQ5TAB PO (11:33)
--- NOTE | 2020-09-02 13:11 | DS.PDOC ---
Discharge Summary General Date of Admission Sep 01, 2020 at 11:03 Date of Discharge 09/02/20 Primary Care Physician: PASCUAL MOTA PA-C Attending Physician: ANIYAH MADISON MD Discharge Summary PROCEDURES PERFORMED DURING STAY: None ADMITTING DIAGNOSES: Coronary artery disease s/p two myocardial infarctions and 4 stents Ischemic cardiomyopathy EF 45% Non Insulin dependent diabetes mellitus Hypertension COPD CKD stage 3 Tobacco use disorder DISCHARGE DIAGNOSES: Acute pulmonary embolism Coronary artery disease s/p two myocardial infarctions and 4 stents Ischemic cardiomyopathy EF 45% Non Insulin dependent diabetes mellitus Hypertension COPD CKD stage 3 Tobacco use disorder COMPLICATIONS/CHIEF COMPLAINT: Pulmonary Embolism. HISTORY OF PRESENT ILLNESS: Mr. Peguero is a pleasant 80 year old male who presented to the ED after one day of sudden onset right lower chest/upper abdominal pain that began when he woke up. He states that the pain is sharp and progressively got worse as the day went on. The pain is sharp in character and does not radiate anywhere. He denies any inciting trauma to the area and states that he mowed his lawn and washed his car yesterday. He is an active gentleman who lives in [place] on [address] Mr. Peguero denies having pain like this before. He drove to a casino in [place], [place] about a week ago and states it t ook him 2 hours to get there by car. He denies fevers, chills, weight loss, shortness of breath, cough, trauma, or recent falls. He states he is fatigued but believes that is because his (Dania Samuel) a few weeks ago. He is tearful during our exam but states he has a support system in the area in the form of his son. HOSPITAL COURSE: #Acute Pulmonary Embolism -CTA 08/30/20 results demonstrated a pulmonary embolism in right middle lobe as well as right ventricular dilation (RV diameter 5.7cm vs LV diameter 3.8) RV/LV ratio is 1.5 (abnormal is considered above 1.0) -A Dopplar echocardiogram 08/31/20 did not confirm the results of the CTA, instead it showed that the right ventricle is normal in size and function thus ruling out submassive pulmonary embolism. -The patient did not have any episodes of hypotension and had negative repeat troponin levels. -We ordered an occult workup to figure out why this patient formed a clot despite being on aspirin and plavix. The CEA, PSA, and Occult blood stool sample results are still pending and can be followed up in outpatient setting -Discussed the anticoagulation treatment plan with Dr. May. The patient is being discharged on Eliquis (10mg BID x 7 days, 5 mg BID q day after initial 7 days) and plavix -The patient's initial chest x ray showed right basilar opacities. The day of discharge a repeat chest x-ray showed a decrease in these opacities. Procalcitonin is 0.06. #CAD s/p two MIs -s/p 4 stents, both drug eluding and bare metal placed in 2010, 2011, and 2019) -HAS-BLED score 3: patient is at a high risk for bleeding based on his hypertension, age, and the fact that he takes plavix. -The patient was not discharge on triple anticoagulation therapy due to his high risk of bleeding. Thus his aspirin 81mg was discontinued. -He was discharged on Eliquis and plavix and recommended to follow up with his building services coordinator Dr. May. #NIDDM -The patient was continued on a consistent carbohydrate diet during his stay [facility]. He is advised to follow up with his PCP in an outpatient setting. #Hypertension: -The patient's blood pressure was stable during stay and he was continued on lisinopril and amlodipine. #COPD: -Mr. Peguero had one overnight episode where he required 10L of oxgen to maintain a saturation of 88%. His breathing continued to improve during his stay and he successfully completed a 6 minute walk test. He does not qualify for home oxygen and had an oxygen saturation of 94% on room air upon discharge. He does not use oxygen at home as his baseline. #CKD stage 3 -The patient's BUN and Creatinine levels stayed at baseline during his hospitalization. He should follow up with PCP to monitor his blood pressure and medications. DISCHARGE MEDICATIONS: Please see below. ALLERGIES: Please see below. PHYSICAL EXAMINATION ON DISCHARGE: VITAL SIGNS: Please see below. GENERAL: Elderly male in no acute distress breathing comfortably HEENT: Patient does not have dentures in, trachea midline, mucous membranes moist and pink CARDIOVASCULAR EXAMINATION: regular rate and rhythm, no murmurs appreciated, heart sounds are noted to be distant RESPIRATORY EXAMINATION: normal inspiratory effort, few crackles appreciated along right lung base, no rhonchi or rales appreciated. ABDOMINAL EXAMINATION: positive bowel sounds, soft, non tender to palpation in all four quadrants, no organomegaly EXTREMITIES: no edema appreciated on bilateral lower extremities, hair loss apparent distal to knees b/l, capillary refill <2 seconds PSYCHIATRIC EXAMINATION: alert and oriented x 3, normal affect LABORATORY DATA: Please see below. IMAGING: Rib x-ray 08/30/20: Impression: Bibasilar opacities suggesting atelectasis/pneumonia and small pleural effusion. Normal appearance of the right ribs. CT angio chest 08/30/20: Impression: Mild right middle lobe and right lower lobe infiltrates and atelectasis with trace right pleural effusion and minimal fibro- atelectatic change in the left lower lobe and anterior segment of the right upper lobe. Minimal pulmonary embolism extending into the lateral segment of the right middle lobe. Elevated RV/LV ratio measuring 1.5. Chest x-ray 09/01/20 Impression: Increased right basilar opacities. Effusion/atelectasis/pneumonia. Consider PA and lateral views of the chest. Consider follow-up chest CT so as it can be compared to the chest CT of 08/30/2020 if clinically relevant. Chest x-ray 09/02/20: Impression: Improved right lower lobe. Continued surveillance is recommended. Echocardiogram: 1. Study is of acceptable technical quality, underlying sinus rhythm. 2. Normal LV size with preserved LV systolic function and grade 1 diastolic dysfunction. 3. No hemodynamically significant valvular disease. 4. Unable to estimate central venous pressure and pulmonary artery pressure, but no signs to suggest pulmonary hypertension. Right ventricle is also normal size and systolic function. PROGNOSIS: Good ACTIVITY: As tolerated DIET: Regular DISCHARGE PLAN: Discharging patient to home DISPOSITION: Patient is clinically stable at this time and back to baseline oxygen requirement which is breathing room air. DISCHARGE INSTRUCTIONS: 1. Follow up with Dr. Ray : Appt time is 1:45 on 09/09/20 2. Follow up with Dr. Barber (building services coordinator) for a 1 week follow up ITEMS TO FOLLOWUP ON ON OUTPATIENT: -Start Eliquis 10mg BID for 7 days, then start 5mg BID -Follow up on CEA, PSA, and occult fecal blood test results. DISCHARGE CONDITION: Stable TIME SPENT ON DISCHARGE: Greater than 25 minutes. Vital Signs/I&Os Vital Signs Date Time Temp Pulse Resp B/P (MAP) Pulse Ox O2 Delivery O2 Flow Rate FiO2 09/02/20 09:31 63 132/84 09/02/20 06:00 97.9 18 98 Nasal Cannula 2.0 09/01/20 18:51 93 I&O- Last 24 Hours up to 6 AM 09/02/20 05:59 Intake Total 480 ml Output Total 0 ml Balance 480 ml Laboratory Data Labs 24H Laboratory Tests 2 09/01/20 16:23: Bedside Glucose (Misc Panel) 283H 09/01/20 21:26: Bedside Glucose (Misc Panel) 94 09/02/20 05:50: Immature Granulocyte % (Auto) 0.9, Neutrophils (%) (Auto) 84.7H, Lymphocytes (%) (Auto) 7.6L, Monocytes (%) (Auto) 6.7, Eosinophils (%) (Auto) 0.0, Basophils (%) (Auto) 0.1, Neutrophils # (Auto) 10.8H, Lymphocytes # (Auto) 1.0L, Monocytes # (Auto) 0.9H, Eosinophils # (Auto) 0.0, Basophils # (Auto) 0.0, Nucleated Red Blood Cells % (auto) 0.0, Anion Gap 7L, Glomerular Filtration Rate > 60.0, Calcium Level 8.4L, Troponin I < 0.02 CBC/BMP Laboratory Tests 09/02/20 05:50 FSBS Laboratory Tests Test 09/01/20 16:23 09/01/20 21:26 Range/Units Bedside Glucose (Misc Panel) 283 94 83-110 MG/DL Discharge Medications Scheduled Amlodipine Besylate (Amlodipine Besylate) 5 Mg Tablet, 5 MG PO DAILY, (Reported) Apixaban (Eliquis) 5 Mg Tablet, 5 MG PO ASDIRECTED 10 MG (2 TABS) TWICE PER DAY FOR 7 DAYS THEN 5 MG (1 TAB) TWICE PER DAY Aspirin (Aspirin EC) 325 Mg Tab, 325 MG PO QHS, (Reported) Atorvastatin Calcium (Atorvastatin Calcium) 10 Mg Tab, 10 MG PO DAILY, (Reported) Clopidogrel Bisulfate (Plavix) 75 Mg Tab, 75 MG PO DAILY, (Reported) Lisinopril (Lisinopril) 2.5 Mg Tab, 2.5 MG PO DAILY, (Reported) Metformin HCl (Metformin HCl) 500 Mg Tab, 500 MG PO DAILY, (Reported) Scheduled PRN Nitroglycerin (Nitroglycerin) 0.4 Mg Sub, 0.4 MG SL for chest pain, (Reported) Allergies Coded Allergies: [email or web address] (Verified Allergy, Intermediate, RASH, 08/30/20) ARIANNA BARAJAS DO Sep 02, 2020 13:10
== END 2020-09-02 14:44 | disposition home or self-care (01) | DRG 176 ==
LOC: EDBD 18:36 → M ED 18:36 → M ED INP 18:37 → ENRESERV 08-31 15:23 → M MSPAV 08-31 17:31 → OBSVTOIN 09-01 11:03
PROVIDERS: ADMIT Internal Medicine; ATTEND Internal Medicine
DX: I26.99 Other pulmonary embolism without acute cor pulmonale (principal); I25.10 Atherosclerotic heart disease of native coronary artery without angina pectoris; I25.2 Old myocardial infarction; Z95.5 Presence of coronary angioplasty implant and graft; I25.5 Ischemic cardiomyopathy; E11.9 Type 2 diabetes mellitus without complications; I12.9 Hypertensive chronic kidney disease with stage 1 through stage 4 chronic kidney disease, or unspecified chronic kidney disease; J44.9 Chronic obstructive pulmonary disease, unspecified; Z87.891 Personal history of nicotine dependence; N18.30 Chronic kidney disease, stage 3 unspecified; Z79.82 Long term (current) use of aspirin; Z79.899 Other long term (current) drug therapy; Z88.8 Allergy status to other drugs, medicaments and biological substances; Z20.822 Contact with and (suspected) exposure to COVID-19

== ENCOUNTER → 2020-09-16 | Outpatient (CLI) | payer MEDICARE, OTHER ==
[~2020-09-16] MED LIST changes: +AMLO1TAB24 PO; +ELIQ5TAB PO; +METH-1165 PO; +TRAM50TA2 PO
--- NOTE | 2020-09-16 14:51 | REP ---
INDICATION: Assess stenosis TECHNIQUE: Carotid ultrasonography was performed bilaterally FINDINGS: Right: CCA systolic: 51.9 centimeters/second CCA diastolic: 13.9 centimeters/second ICA systolic: 52.4 centimeters/second ICA diastolic: 17.5 centimeters/second ICA CCA ratio: 1.0 Left: CCA systolic: 58.2 centimeters/second CCA diastolic: 17.0 centimeters/second ICA systolic: 65.3 centimeters/second ICA diastolic: 21.3 centimeters/second ICA CCA ratio: 1.2 Vertebral artery: Right: Antegrade flow left: Antegrade flow IMPRESSION: According to the SRU criteria there is less than 50% stenosis of the internal carotid artery bilaterally. This is secondary to both calcified and noncalcified are thrombus plaque formation. <Electronically signed by Johnathan Rodriguez > 09/16/20 3012
== END ==
LOC: M RAD 13:40
PROVIDERS: ATTEND Physician Assistant Medical
DX: I65.23 Occlusion and stenosis of bilateral carotid arteries (principal)

== ENCOUNTER 2021-01-18 11:52 | Emergency (ER) | payer MEDICARE, OTHER ==
[~2021-01-18] VITALS: Ht 172.7 cm; Wt 79.5 kg
[~2021-01-18 11:52] MED LIST changes: -LISI2.5T2 PO; +LISI2.5T9 PO
[2021-01-18 12:30] LABS: BASO # 0.1 10^3/uL (0.0-0.2); BASO % 0.8 % (0.0-1.0); EOS % 0.1 % (0.0-3.0); HEMOGLOBIN 14.6 g/dl (13.5-17.5); LYMPH % 10.6 % (24.0-44.0); MEAN CORPUSCULAR HEMOGLOBIN 30.7 pg (27.0-33.0); MEAN CORPUSCULAR HGB CONC 32.4 g/dl (32.0-36.5); MEAN CORPUSCULAR VOLUME 94.7 fl (80.0-96.0); MONO # 0.4 10^3/uL (0.0-0.8); MONO % 4.7 % (2.0-8.0); NEUTROPHILS # 7.5 10^3/uL (1.5-8.5); NEUTROPHILS % 83.2 % (36.0-66.0); PLATELET COUNT, AUTOMATED 212 10^3/uL (150-450); RED BLOOD COUNT 4.75 10^6/uL (4.30-6.10)
[2021-01-18 13:05] LABS: BILIRUBIN,DIRECT 0.1 MG/DL (0.0-0.2); BILIRUBIN,TOTAL 0.5 MG/DL (0.2-1.0); CALCIUM LEVEL 9.3 MG/DL (8.8-10.2); CREATININE FOR GFR 1.46 MG/DL (0.70-1.30); GLOMERULAR FILTRATION RATE 49.7 (>42); POTASSIUM SERUM 4.1 MEQ/L (3.5-5.1); TOTAL PROTEIN 7.4 GM/DL (6.4-8.2)
[2021-01-18] MEDS ORDERED: diazePAM 10MG/2ML SYRINGE (J3360 PER 5MG) IV ONE (13:15)
[2021-01-18] MEDS ORDERED: ULTR50TA8 PO (13:22)
[2021-01-18] MEDS ORDERED: CYCL5TAB PO (13:22)
[2021-01-18] MEDS ORDERED: KETOROLAC 30 MG/ML 1ML VIAL IV ONE (14:00)
[2021-01-18 14:15] VITALS: BP 189/98
== END 2021-01-18 14:39 | disposition home or self-care (01) ==
LOC: M ED 11:52
DX: S39.012A Strain of muscle, fascia and tendon of lower back, initial encounter (principal); X58.XXXA Exposure to other specified factors, initial encounter; Y92.89 Other specified places as the place of occurrence of the external cause; M54.16 Radiculopathy, lumbar region; E11.9 Type 2 diabetes mellitus without complications; I10 Essential (primary) hypertension; J44.9 Chronic obstructive pulmonary disease, unspecified; N28.9 Disorder of kidney and ureter, unspecified; Z79.899 Other long term (current) drug therapy; Z79.82 Long term (current) use of aspirin; Z79.84 Long term (current) use of oral hypoglycemic drugs; Z79.01 Long term (current) use of anticoagulants; Z88.8 Allergy status to other drugs, medicaments and biological substances; Z87.891 Personal history of nicotine dependence
CPT/HCPCS: 80048; 80076; 83690; 85025; 96374; 96375; 99284; J1885; J3360